=== PATIENT | female | born 1980 | race Caucasian/White ===

== ENCOUNTER 2017-02-07 19:21 | Emergency (ER) | payer OTHER ==
[~2017-02-07] VITALS: Ht 160 cm; Wt 74.4 kg
[~2017-02-07 19:21] MED LIST: ASPI-1094 PO; ATOR20TA PO; CLON2TAB4 PO; FERR-38 PO; HYDR-3326 PO; INSU100C SQ; METO-295 PO; METO50TA3 PO; NORT10CA PO; OXYCARBAZEPINE PO; PHEN100C4 PO
--- NOTE | 2017-02-07 19:32 | NUR ---
PT WALKED INTO ER C/O SOB/LEFT SIDED WEAKNESS AND TROUBLE SPEAKING SINCE 1819, PT IS ALERT, ORIENTED X 4, NO RESP DISTRESS NOTED OR REPORTED UPON ASSESSMENT...PT REPORTED INCREASING LEFT SIDED WEAKNESS SINCE 1619... MD AT BEDSIDE...
[2017-02-07] MEDS ORDERED: IV NORMAL SALINE 500 ML BAG IV ONE (19:45)
[2017-02-07 20:09] LABS: BASOPHILS % (AUTO) 0.4 % (0.0-2.0); EOSINOPHILS # (AUTO) 0.1 K/uL (0.0-0.7); EOSINOPHILS % (AUTO) 0.9 % (0.0-7.0); HEMATOCRIT 38.2 % (37.0-47.0); HEMOGLOBIN 12.6 g/dL (12.0-16.0); LYMPHOCYTES # (AUTO) 1.7 K/uL (0.8-4.8); MEAN CORPUSCULAR HEMOGLOBIN 30.3 uug (27.0-31.0); MEAN CORPUSCULAR HGB CONC 33 g/dL (32.0-37.0); MEAN CORPUSCULAR VOLUME 91.9 fL (81.0-99.0); MONOCYTES # (AUTO) 0.2 K/uL (0.1-1.30); MONOCYTES % (AUTO) 2.9 % (0.0-11.0); NEUTROPHILS # (AUTO) 4.8 K/uL (1.8-8.9); NEUTROPHILS % (AUTO) 70.8 % (38.5-71.5); PLATELET COUNT (AUTO) 375 K/uL (150-450); RED BLOOD CELL COUNT(AUTO) 4.15 MIL/uL (4.20-5.40); RED CELL DISTRIBUTION WIDTH 11.9 % (11.5-14.5); WHITE BLOOD COUNT (AUTO) 6.8 K/uL (4.0-11.2)
[2017-02-07 20:15] LABS: CALCIUM 9.1 mg/dL (8.5-10.1); CARBON DIOXIDE 28 mmol/L (21-32); CHLORIDE 104 mmol/L (98-107); GFR 62 mL/min (>60); GLUCOSE 138 mg/dL (74-106); POTASSIUM 4.8 mmol/L (3.5-5.1); SODIUM SERUM 141 mmol/L (136-145); UREA NITROGEN, BLOOD 19 mg/dL (7-18)
[2017-02-07] MEDS ORDERED: LABETALOL HCL 100 MG/20 ML VIAL IV ONE (20:15)
[2017-02-07] MEDS ORDERED: LABETALOL HCL 100 MG/20 ML VIAL ONE (20:15)
[2017-02-07 20:21] LABS: ALANINE AMINOTRANSFERASE 16 U/L (14-59); ALBUMIN 3.9 g/dL (3.4-5.0); ALKALINE PHOSPHATASE 151 U/L (50-136); ASPARTATE AMINOTRANSFERASE 17 U/L (15-37); BILIRUBIN,DIRECT < 0.1 mg/dL (0.0-0.2); BILIRUBIN,TOTAL 0.2 mg/dL (0.2-1.0); TOTAL PROTEIN, SERUM 8.6 g/dL (6.4-8.2)
[2017-02-07 20:23] LABS: TROPONIN I < 0.017 ng/mL (0.00-0.056)
[2017-02-07 20:29] LABS: LACTIC ACID 1.3 mmol/L (0.4-2.0)
[2017-02-07] MEDS ORDERED: IOHEXOL 350 100 ML INFUS..BTL ONE (21:01)
[2017-02-07] MEDS ORDERED: NORMAL SALINE FLUSH 10 ML DISP.SYRIN ONE (21:01)
[2017-02-07] MEDS ORDERED: IV NORMAL SALINE 250 ML IV ONE (21:01)
[2017-02-07 21:20] LABS: *BILIRUBIN,URIN NEGATIVE (NEGATIVE); *BLOOD, URINE 3+ (NEGATIVE); *CLARITY,URINE SLIGHTLY CLOUDY (CLEAR); *COLOR,URINE YELLOW (YELLOW); *KETONES,URINE NEGATIVE (NEGATIVE); *PROTEIN,URINE NEGATIVE (NEGATIVE); *UROBILINOGEN,URINE 0.2 E.U./dl (NORMAL); LEUKOCYTE ESTERASE ,URINE NEGATIVE (NEGATIVE); NITRITE, URINE NEGATIVE (NEGATIVE); UGLUCOSE NEGATIVE (NEGATIVE)
[2017-02-07 21:27] LABS: *AMPHETAMINE, URINE NEGATIVE (NEGATIVE); *BARBITURATE, URINE NEGATIVE (NEGATIVE); *CANNABINOID, URINE NEGATIVE (NEGATIVE); *COCCAINE, URINE NEGATIVE (NEGATIVE); *OPIATE, URINE NEGATIVE (NEGATIVE); *PHENCYCLIDINE SCREEN,URINE NEGATIVE (NEGATIVE)
[2017-02-07 21:28] LABS: BACTERIA,URINE FEW /HPF (NONE SEEN); RBC,URINE 80-100 /HPF (0-3); SQUAMOUS EPITHELIAL CELL,UR MODERATE /HPF (NONE SEEN); WBC,URINE 0-3 /HPF (0-3)
--- NOTE | 2017-02-07 22:17 | NUR ---
Patient discharged to home in stable conditon. Written and verbal after care instructions given. Patient verbalizes understanding of instructions. Per pt request used wheelchair to help pt out, pts friend waiting for pt outside...
[2017-02-07 22:32] VITALS: BP 148/97
== END 2017-02-07 22:34 | disposition home or self-care (01) ==
LOC: ER 19:21
DX: R47.1 Dysarthria and anarthria (principal); G45.9 Transient cerebral ischemic attack, unspecified; I10 Essential (primary) hypertension; J45.909 Unspecified asthma, uncomplicated; E78.00 Pure hypercholesterolemia, unspecified; G43.909 Migraine, unspecified, not intractable, without status migrainosus; E11.9 Type 2 diabetes mellitus without complications; Z79.82 Long term (current) use of aspirin; Z79.4 Long term (current) use of insulin; Z88.1 Allergy status to other antibiotic agents; Z88.8 Allergy status to other drugs, medicaments and biological substances
CPT/HCPCS: 36415; 70030-TC; 70450; 70496; 71010; 80307; 83605; 85025; 85730; 87040; 87077; 87086; 93005; A4663; J3490; J7040; J7050; Q9967

== ENCOUNTER 2017-02-16 17:30 | Inpatient (IN) | payer OTHER ==
[~2017-02-16] VITALS: Ht 160 cm; Wt 70.4 kg
--- NOTE | 2017-02-16 18:30 | NUR ---
PT TOOK OWN SUGAR AT HOME 123
[2017-02-16 19:23] LABS: BASOPHILS % (AUTO) 0.5 % (0.0-2.0); EOSINOPHILS # (AUTO) 0.1 K/uL (0.0-0.7); EOSINOPHILS % (AUTO) 1.4 % (0.0-7.0); HEMATOCRIT 37.2 % (37.0-47.0); LYMPHOCYTES # (AUTO) 1.4 K/uL (0.8-4.8); LYMPHOCYTES % (AUTO) 17.8 % (20.5-51.5); MEAN CORPUSCULAR HEMOGLOBIN 32.3 uug (27.0-31.0); MEAN CORPUSCULAR HGB CONC 36 g/dL (32.0-37.0); MONOCYTES # (AUTO) 0.1 K/uL (0.1-1.30); MONOCYTES % (AUTO) 1.5 % (0.0-11.0); NEUTROPHILS # (AUTO) 6.5 K/uL (1.8-8.9); NEUTROPHILS % (AUTO) 78.8 % (38.5-71.5); PLATELET COUNT (AUTO) 352 K/uL (150-450); RED BLOOD CELL COUNT(AUTO) 4.09 MIL/uL (4.20-5.40); RED CELL DISTRIBUTION WIDTH 11.8 % (11.5-14.5); WHITE BLOOD COUNT (AUTO) 8.1 K/uL (4.0-11.2)
[2017-02-16 19:27] LABS: CALCIUM 9.1 mg/dL (8.5-10.1); POTASSIUM 4.7 mmol/L (3.5-5.1)
[2017-02-16 19:33] LABS: ALBUMIN 3.7 g/dL (3.4-5.0); BILIRUBIN,DIRECT 0.1 mg/dL (0.0-0.2); BILIRUBIN,TOTAL 0.2 mg/dL (0.2-1.0); TOTAL PROTEIN, SERUM 8.1 g/dL (6.4-8.2)
[2017-02-16 19:34] LABS: TROPONIN I < 0.017 ng/mL (0.00-0.056)
--- NOTE | 2017-02-16 20:42 | NUR ---
Pt. admitted to [facility], under care of Dr. Feng Belongs List completed
[2017-02-16 21:00] VITALS: BP 113/84
[2017-02-16] MEDS ORDERED: COLL30OI TOP (21:21)
[2017-02-16] MEDS ORDERED: MUPI22OI2 TP (21:21)
[2017-02-16] MEDS ORDERED: ACETAMINOPHEN 325 MG TABLET PO PRN (21:45)
[2017-02-16] MEDS ORDERED: INSULIN REGULAR, HUMAN 300 UNITS/3 ML VIAL SQ PRN (21:45)
[2017-02-16] MEDS ORDERED: MORPHINE SULFATE 2 MG/1 ML DISP.SYRIN IV PRN (21:45)
[2017-02-16] MEDS ORDERED: ZOLPIDEM 5 MG TABLET PO PRN (21:45)
[2017-02-16] MEDS ORDERED: DEXTROSE 50% 50 ML DISP.SYRIN IV PRN (21:45)
[2017-02-16] MEDS ORDERED: INSULIN REGULAR, HUMAN 300 UNIT/3 ML VIAL SQ PRN (21:45)
[2017-02-16] MEDS ORDERED: ONDANSETRON 4 MG/2 ML VIAL IV PRN (21:45)
[2017-02-16] MEDS ORDERED: ACET-1467 PO (21:53)
[2017-02-16] MEDS ORDERED: INSU100V7 SQ (21:53)
[2017-02-16] MEDS ORDERED: ATOR40TA PO (21:53)
[2017-02-16] MEDS ORDERED: ZOLP10TA2 PO (21:53)
[2017-02-16] MEDS ORDERED: CLON1TAB4 PO (21:53)
[2017-02-16] MEDS ORDERED: INSU100C SQ (22:02)
[2017-02-16] MEDS ORDERED: LURA20TA PO (22:02)
--- NOTE | 2017-02-16 22:45 | NUR ---
PATIENT RECEIVED FROM ER VIA RNORMAN. ALERT, ORIENTED X 4, IN NO ACUTE DISTRESS, NO C/O OF CHEST PAIN, NO SOB. PLACED COMFORTABLY IN BED, BODY ASSESSMENT DONE, PT ABLE TO PROVIDE HISTORY. SAFETY MEASURES INITIATED. INSTRUCTED PT TO USE CALL LIGHT WHEN ASSISTANCE IS NEEDED. BED IN LOW POSITION, BED ALARM ON. WILL CONTINUE TO MONITOR.
[2017-02-16] MEDS ORDERED: HYDROCODONE/APAP 5-325MG TABLET PO PRN (23:45)
[2017-02-16] MEDS ORDERED: CLONAZEPAM 1 MG TABLET PO PRN (23:45)
[2017-02-16] MEDS ORDERED: MUPIROCIN 2% OINT 22 GM TUBE TP PRN (23:45)
[2017-02-16] MEDS ORDERED: PHENYTOIN SODIUM EXTENDED 100 MG CAPSULE.SA PO SCH (23:45)
[2017-02-16] MEDS ORDERED: METOPROLOL TARTRATE 50 MG TABLET PO SCH (23:45)
[2017-02-16] MEDS ORDERED: COLLAGENASE OINT 30 GM TUBE TOP PRN (23:45)
[2017-02-17] MEDS ORDERED: PHENYTOIN SODIUM EXTENDED 100 MG CAPSULE.SA PO ONE (00:33)
[2017-02-17] MEDS ORDERED: METOPROLOL TARTRATE 25 MG TABLET ONE (00:34)
[2017-02-17] MEDS ORDERED: HYDROCODONE/APAP 5-325MG TABLET ONE (00:41)
[2017-02-17] MEDS ORDERED: INSULIN DETEMIR 300 UNIT/3 ML CARTRIDGE SQ ONE (00:42)
[2017-02-17] MEDS: INSULIN DETEMIR 300 UNIT/3 ML CARTRIDGE SQ SCH ×2 (00:52→20:43)
--- NOTE | 2017-02-17 01:00 | NUR ---
KAREN FERREIRA ORDERED WITH DECREASED BP. ELEVATED LOWER EXTREMITIES. WILL MONITOR Addendum: 02/17/17 at 0610 by MANNY DELATORRE RN PATIENT ALERT, ALSO STATED THAT SHE USUALLY HAS LOW BP DURING THE NIGHT AND ELEVATES DURING THE DAY
[2017-02-17 05:38] VITALS: BP 82/52
--- NOTE | 2017-02-17 05:42 | NUR ---
PT'S BP AT 82/52, NO ACUTE DISTRESS, NO SOB, RESPONSIVE, ALERT, DENIES DIZZINESS OR CHEST PAIN. PT STATED "MY BP IS USUALLY LOW IN THE HOST/HOSTESS HEAD AND HIGH DURING THE DAY". DR. WALDRON MADE AWARE, NO NEW ORDERS AT THIS TIME. PER DR. WALDRON CONTINUE TO MONITOR.
[2017-02-17] MEDS: BLOOD SUGAR DIAGNOSTIC 1 EACH STRIP VI SCH ×4 (06:40→20:35)
[2017-02-17] MEDS ORDERED: PHENYTOIN SODIUM EXTENDED 100 MG CAPSULE.SA PO SCH (07:30)
--- NOTE | 2017-02-17 08:04 | NUR ---
DILANTIN TAKEN OUT OF PYXIS BY STEEL MOLDER.
[2017-02-17] MEDS ORDERED: ASPIRIN 81 MG TAB.CHEW PO SCH (09:00)
[2017-02-17] MEDS ORDERED: METOPROLOL TARTRATE 25 MG TABLET PO SCH (09:00)
[2017-02-17] MEDS ORDERED: OXYCARBAZEPINE PO SCH (09:00)
[2017-02-17] MEDS: ASPIRIN 325 MG TABLET PO SCH (09:20)
[2017-02-17] MEDS: PHENYTOIN SODIUM EXTENDED 100 MG CAPSULE.SA PO SCH ×3 (09:21→21:31)
[2017-02-17] MEDS: PANTOPRAZOLE SODIUM 40 MG TABLET.DR PO SCH (09:21)
[2017-02-17] MEDS: OXCARBAZEPINE 300 MG TABLET PO SCH ×2 (09:22→20:36)
[2017-02-17] MEDS: FERROUS SULFATE 325 MG TABEC PO SCH (09:22)
--- NOTE | 2017-02-17 09:25 | NUR ---
tommie taken out by night time babysitter nurses
[2017-02-17 11:09] LABS: ALBUMIN 3.9 g/dL (3.4-5.0); BILIRUBIN,TOTAL 0.2 mg/dL (0.2-1.0); CALCIUM 9.1 mg/dL (8.5-10.1); CREATININE 1.3 mg/dL (0.6-1.3); MAGNESIUM 2.2 mg/dL (1.8-2.4); PHOSPHOROUS 4.7 mg/dL (2.5-4.9); POTASSIUM 4.7 mmol/L (3.5-5.1); TOTAL PROTEIN, SERUM 8.5 g/dL (6.4-8.2)
[2017-02-17 11:11] LABS: BASOPHILS % (AUTO) 0.4 % (0.0-2.0); EOSINOPHILS # (AUTO) 0.1 K/uL (0.0-0.7); EOSINOPHILS % (AUTO) 0.8 % (0.0-7.0); HEMATOCRIT 36.7 % (37.0-47.0); LYMPHOCYTES # (AUTO) 1.8 K/uL (0.8-4.8); LYMPHOCYTES % (AUTO) 23.7 % (20.5-51.5); MEAN CORPUSCULAR HEMOGLOBIN 32.2 uug (27.0-31.0); MEAN CORPUSCULAR HGB CONC 35 g/dL (32.0-37.0); MEAN CORPUSCULAR VOLUME 91.3 fL (81.0-99.0); MONOCYTES # (AUTO) 0.1 K/uL (0.1-1.30); MONOCYTES % (AUTO) 1.7 % (0.0-11.0); NEUTROPHILS # (AUTO) 5.5 K/uL (1.8-8.9); NEUTROPHILS % (AUTO) 73.4 % (38.5-71.5); PLATELET COUNT (AUTO) 303 K/uL (150-450); RED BLOOD CELL COUNT(AUTO) 4.02 MIL/uL (4.20-5.40); RED CELL DISTRIBUTION WIDTH 11.8 % (11.5-14.5); WHITE BLOOD COUNT (AUTO) 7.5 K/uL (4.0-11.2)
[2017-02-17 12:05] VITALS: BP 105/72
[2017-02-17] MEDS: ACETAMINOPHEN/CODEINE 300-30 MG TABLET PO PRN ×2 (12:26→19:35)
--- NOTE | 2017-02-17 12:51 | NUR ---
OK FOR MRI, SPOKE TO NURSE MIGUEL TO SENT THE PATIENT AT 5.30PM FOR 6.00 PM TABLETIME, MRI CHECKLIST ,CONSENT DONE AND TO MAKE SURE PATIENT IS NOT CLAUSTRO.,IF IT IS THEN CALL THE TO SEDATE THE PATIENT.
[2017-02-17] MEDS: IV NS 1000 ML 1,000 ML IV PRN ×2 (15:03→15:09)
[2017-02-17 16:14] VITALS: BP 107/72
[2017-02-17] MEDS ORDERED: GADOVERSETAMIDE 2.5 MMOL/5 ML VIAL MC ONE (16:34)
[2017-02-17] MEDS ORDERED: LORAZEPAM 2 MG/1 ML VIAL IV ONE (16:45)
[2017-02-17 17:33] VITALS: BP 128/88
[2017-02-17 18:30] LABS: *BILIRUBIN,URIN NEGATIVE (NEGATIVE); *BLOOD, URINE Trace-intact (NEGATIVE); *CLARITY,URINE CLEAR (CLEAR); *COLOR,URINE YELLOW (YELLOW); *KETONES,URINE NEGATIVE (NEGATIVE); *PROTEIN,URINE NEGATIVE (NEGATIVE); *UROBILINOGEN,URINE 0.2 E.U./dl (NORMAL); LEUKOCYTE ESTERASE ,URINE NEGATIVE (NEGATIVE); NITRITE, URINE NEGATIVE (NEGATIVE); PH,URINE 5.5 (5.0-8.0); UGLUCOSE NEGATIVE (NEGATIVE)
[2017-02-17 18:43] LABS: *AMPHETAMINE, URINE NEGATIVE (NEGATIVE); *BARBITURATE, URINE POSITIVE (NEGATIVE); *CANNABINOID, URINE NEGATIVE (NEGATIVE); *COCCAINE, URINE NEGATIVE (NEGATIVE); *OPIATE, URINE POSITIVE (NEGATIVE); *PHENCYCLIDINE SCREEN,URINE NEGATIVE (NEGATIVE)
[2017-02-17 18:49] LABS: BACTERIA,URINE FEW /HPF (NONE SEEN); RBC,URINE 0-3 /HPF (0-3); SQUAMOUS EPITHELIAL CELL,UR MODERATE /HPF (NONE SEEN); WBC,URINE 0-3 /HPF (0-3)
--- NOTE | 2017-02-17 19:30 | NUR ---
RECEIVED PT RESTING IN BED, IN NO ACUTE DISTRESS. IVF INFUSING, IV SITE ON R WRIST PATENT, NO SIGNS OF INFILTRATION NOTED. CALL LIGHT WITHIN REACH, WILL CONTINUE TO MONITOR.
[2017-02-17 20:20] VITALS: BP 113/66
[2017-02-17] MEDS ORDERED: DOCUSATE SODIUM 250 MG CAPSULE PO SCH (21:00)
[2017-02-17] MEDS ORDERED: NORTRIPTYLINE HCL 10 MG CAPSULE PO SCH (21:00)
[2017-02-17] MEDS ORDERED: DOCUSATE SODIUM 100 MG CAPSULE PO SCH (21:00)
[2017-02-17] MEDS ORDERED: ATORVASTATIN 20 MG TABLET PO SCH (21:00)
[2017-02-18] MEDS: ACETAMINOPHEN/CODEINE 300-30 MG TABLET PO PRN ×3 (02:21→13:42)
[2017-02-18] MEDS: PHENYTOIN SODIUM EXTENDED 100 MG CAPSULE.SA PO SCH ×2 (05:10→13:39)
[2017-02-18] MEDS: IV NS 1000 ML 1,000 ML IV PRN (05:16)
[2017-02-18 05:30] VITALS: BP 96/56
--- NOTE | 2017-02-18 06:10 | NUR ---
PT SLEPT WELL, NO ACUTE DISTRESS. ON PAIN MANAGEMENT FOR C/O OF HEADACHE/MIGRANIE CONTROLLED WITH TYLENOL #3. IVF STILL INFUSING. SAFETY MAINTAINED, ASSISTED WITH TOILETING NEEDS, COMMODE AT BEDSIDE. WILL CONTINUE TO MONITOR.
[2017-02-18] MEDS: PANTOPRAZOLE SODIUM 40 MG TABLET.DR PO SCH (06:28)
[2017-02-18] MEDS: BLOOD SUGAR DIAGNOSTIC 1 EACH STRIP VI SCH ×2 (06:29→11:58)
[2017-02-18 07:38] LABS: ALBUMIN 3.5 g/dL (3.4-5.0); BILIRUBIN,TOTAL 0.2 mg/dL (0.2-1.0); CALCIUM 8.6 mg/dL (8.5-10.1); CREATININE 0.8 mg/dL (0.6-1.3); PHOSPHOROUS 4.1 mg/dL (2.5-4.9); POTASSIUM 4.8 mmol/L (3.5-5.1); TOTAL PROTEIN, SERUM 7.9 g/dL (6.4-8.2)
--- NOTE | 2017-02-18 08:00 | NUR ---
AWAKE, ALERT AND ORIENTED X 4. BUSTILLO X4 WITH SLIGHTLY DECREASED STRENGTH ON LEFT SIDE. ABLE TO HOLD MEDS AND WATER IN LEFT HAND AND TAKE HER MEDS BY HERSELF. SPEAKS IN A CLEAR VOICE WITHOUT SIGNS OF DYSARTHRIA. NO OVERT SIGNS OF STROKE NOTED. TAKING BREAKFAST INDEPENDENTLY.
[2017-02-18] MEDS: ASPIRIN 325 MG TABLET PO SCH (08:31)
[2017-02-18] MEDS: FERROUS SULFATE 325 MG TABEC PO SCH (08:31)
[2017-02-18] MEDS: OXCARBAZEPINE 300 MG TABLET PO SCH (08:32)
[2017-02-18 08:47] LABS: THYROID STIMULATING HORMONE 5.251 mIU/mL (0.358-3.740)
[2017-02-18 09:34] LABS: BASOPHILS % (AUTO) 0.4 % (0.0-2.0); EOSINOPHILS # (AUTO) 0.1 K/uL (0.0-0.7); EOSINOPHILS % (AUTO) 0.9 % (0.0-7.0); HEMATOCRIT 37.9 % (37.0-47.0); HEMOGLOBIN 13.1 g/dL (12.0-16.0); LYMPHOCYTES # (AUTO) 1.7 K/uL (0.8-4.8); LYMPHOCYTES % (AUTO) 27.2 % (20.5-51.5); MEAN CORPUSCULAR HEMOGLOBIN 31.9 uug (27.0-31.0); MEAN CORPUSCULAR HGB CONC 35 g/dL (32.0-37.0); MEAN CORPUSCULAR VOLUME 92.3 fL (81.0-99.0); MONOCYTES # (AUTO) 0.3 K/uL (0.1-1.30); MONOCYTES % (AUTO) 4.5 % (0.0-11.0); NEUTROPHILS # (AUTO) 4.3 K/uL (1.8-8.9); PLATELET COUNT (AUTO) 314 K/uL (150-450); RED BLOOD CELL COUNT(AUTO) 4.11 MIL/uL (4.20-5.40); RED CELL DISTRIBUTION WIDTH 11.9 % (11.5-14.5); WHITE BLOOD COUNT (AUTO) 6.4 K/uL (4.0-11.2)
[2017-02-18 11:09] VITALS: BP 112/74
[2017-02-18 15:06] VITALS: BP 100/70
--- NOTE | 2017-02-18 16:30 | NUR ---
discharge instructions given to patient. Verbalized understanding. Pt is in no acute distress. Pt refused to have pharmacist education about her medication. Pt refused to have picture taken of her wounds. "im in a hurry my dad will be downstairs soon". IV d/c. on right hand.
--- NOTE | 2017-02-18 16:33 | NUR ---
Discharge: The patient will be discharged today back home [[address] [place] [address]] [address] Feng. She is aware and in agreement with her discharge. She will discharged via private car.
== END 2017-02-18 16:35 | disposition home or self-care (01) | DRG 756 ==
LOC: ER 17:32 → MED 20:28
PROVIDERS: ADMIT Internal Medicine; ATTEND Internal Medicine
DX: F44.9 Dissociative and conversion disorder, unspecified (principal); N17.0 Acute kidney failure with tubular necrosis; I69.854 Hemiplegia and hemiparesis following other cerebrovascular disease affecting left non-dominant side; E78.5 Hyperlipidemia, unspecified; G40.909 Epilepsy, unspecified, not intractable, without status epilepticus; G43.909 Migraine, unspecified, not intractable, without status migrainosus; J45.909 Unspecified asthma, uncomplicated; Z91.81 History of falling; Z86.718 Personal history of other venous thrombosis and embolism; Z83.3 Family history of diabetes mellitus; Z79.4 Long term (current) use of insulin; M25.552 Pain in left hip; E10.65 Type 1 diabetes mellitus with hyperglycemia; F41.9 Anxiety disorder, unspecified; F31.9 Bipolar disorder, unspecified; I73.9 Peripheral vascular disease, unspecified; I10 Essential (primary) hypertension; I25.2 Old myocardial infarction; E10.40 Type 1 diabetes mellitus with diabetic neuropathy, unspecified
CPT/HCPCS: 36415; 70030-TC; 70450; 70553; 71010; 73502; 80307; 83605; 83735; 84100; 84443; 84703; 85025; 85730; 86850; 86900; 86901; 87040; 87086; 93005; 97001; A4663; A9579; J1815; J2060; J7030

== ENCOUNTER 2017-02-20 19:59 | Emergency (ER) | payer OTHER ==
[~2017-02-20] VITALS: Ht 175.3 cm; Wt 71.2 kg
[~2017-02-20 19:59] MED LIST changes: +ACET-1467 PO; +ATOR40TA PO; +CLON1TAB4 PO; -CLON2TAB4 PO; +COLL30OI TOP; +INSU100V7 SQ; +LURA20TA PO; -METO-295 PO; +MUPI22OI2 TP; +ZOLP10TA2 PO
--- NOTE | 2017-02-20 20:09 | NUR ---
Patient BIB [facility] c/o n/v. Patient appears well and is laughing and joking on gurney, patient states that she was just discharged from this hospital and that she has been vomiting since. To room 4A.
--- NOTE | 2017-02-20 20:20 | NUR ---
KEYSHA speaking with Dr. Mayes, Luis
[2017-02-20] MEDS ORDERED: ONDANSETRON 4 MG/2 ML VIAL IV ONE (20:45)
[2017-02-20] MEDS ORDERED: IV NORMAL SALINE 1000 ML BAG IV ONE (20:45)
[2017-02-20 21:09] LABS: BASOPHILS # (AUTO) 0.1 K/uL (0.0-0.2); BASOPHILS % (AUTO) 0.6 % (0.0-2.0); EOSINOPHILS % (AUTO) 0.1 % (0.0-7.0); HEMATOCRIT 37.8 % (37.0-47.0); LYMPHOCYTES # (AUTO) 0.8 K/uL (0.8-4.8); LYMPHOCYTES % (AUTO) 7.4 % (20.5-51.5); MEAN CORPUSCULAR HEMOGLOBIN 31.3 uug (27.0-31.0); MEAN CORPUSCULAR HGB CONC 34 g/dL (32.0-37.0); MEAN CORPUSCULAR VOLUME 91.2 fL (81.0-99.0); MONOCYTES # (AUTO) 0.1 K/uL (0.1-1.30); MONOCYTES % (AUTO) 0.7 % (0.0-11.0); NEUTROPHILS # (AUTO) 9.2 K/uL (1.8-8.9); NEUTROPHILS % (AUTO) 91.2 % (38.5-71.5); PLATELET COUNT (AUTO) 231 K/uL (150-450); RED BLOOD CELL COUNT(AUTO) 4.15 MIL/uL (4.20-5.40); RED CELL DISTRIBUTION WIDTH 11.7 % (11.5-14.5); WHITE BLOOD COUNT (AUTO) 10.2 K/uL (4.0-11.2)
[2017-02-20 21:12] LABS: CREATININE 0.8 mg/dL (0.6-1.3); POTASSIUM 4.2 mmol/L (3.5-5.1)
[2017-02-20] MEDS ORDERED: ONDANSETRON ODT 4 MG TAB.RAPDIS SL ONE (21:15)
[2017-02-20 21:18] LABS: ALBUMIN 3.9 g/dL (3.4-5.0); BILIRUBIN,DIRECT 0.1 mg/dL (0.0-0.2); BILIRUBIN,TOTAL 0.3 mg/dL (0.2-1.0); TOTAL PROTEIN, SERUM 8.4 g/dL (6.4-8.2)
[2017-02-20] MEDS ORDERED: ONDANSETRON ODT 4 MG TAB.RAPDIS ONE (21:21)
--- NOTE | 2017-02-20 22:01 | NUR ---
Patient discharged to home in stable conditon. Written and verbal after care instructions given. Patient verbalizes understanding of instructions.
== END 2017-02-20 22:02 | disposition home or self-care (01) ==
LOC: ER 20:02
DX: R11.10 Vomiting, unspecified (principal); I10 Essential (primary) hypertension; E78.00 Pure hypercholesterolemia, unspecified; J45.909 Unspecified asthma, uncomplicated; F31.9 Bipolar disorder, unspecified; E11.9 Type 2 diabetes mellitus without complications; G43.909 Migraine, unspecified, not intractable, without status migrainosus; Z79.4 Long term (current) use of insulin; Z88.1 Allergy status to other antibiotic agents; Z91.030 Bee allergy status; Z91.018 Allergy to other foods
CPT/HCPCS: 36415; 80048; 80076; 83690; 84484; 85025; 93005; 99285; A4663; Q0162; 70030-TC

== ENCOUNTER 2018-02-19 18:10 | Inpatient (IN) | payer OTHER ==
[~2018-02-19] VITALS: Ht 160 cm; Wt 69.4 kg
[~2018-02-19 18:10] MED LIST changes: +METO50TA16 PO; -METO50TA3 PO
[2018-02-19] MEDS ORDERED: DIVA500T2 PO (18:27)
--- NOTE | 2018-02-19 18:51 | NUR ---
DR CAIN AT THE BEDSIDE FOR EVAL AND EXAM.
--- NOTE | 2018-02-19 19:08 | NUR ---
SHIFT REPORT GIVEN TO GENESIS BOLANOS, I RELINQUISH CARE AT THIS TIME.
[2018-02-19 19:34] LABS: BASOPHILS % (AUTO) 0.5 % (0.0-2.0); EOSINOPHILS # (AUTO) 0.2 K/uL (0.0-0.7); EOSINOPHILS % (AUTO) 2.8 % (0.0-7.0); HEMATOCRIT 29.9 % (31.2-41.9); HEMOGLOBIN 10.3 g/dL (10.9-14.3); LYMPHOCYTES # (AUTO) 1.2 K/uL (20.0-40.0); LYMPHOCYTES % (AUTO) 22.1 % (20.5-51.5); MEAN CORPUSCULAR HEMOGLOBIN 31.6 uug (24.7-32.8); MEAN CORPUSCULAR HGB CONC 35 g/dL (32.3-35.6); MEAN CORPUSCULAR VOLUME 91.4 fL (75.5-95.3); MONOCYTES # (AUTO) 0.3 K/uL (2.0-10.0); NEUTROPHILS # (AUTO) 3.8 K/uL (1.8-8.9); NEUTROPHILS % (AUTO) 69.6 % (38.5-71.5); PLATELET COUNT (AUTO) 353 K/uL (179-408); RED BLOOD CELL COUNT(AUTO) 3.27 MIL/uL (3.63-4.92); WHITE BLOOD COUNT (AUTO) 5.5 K/uL (3.8-11.8)
[2018-02-19 19:36] LABS: *BILIRUBIN,URIN NEGATIVE (NEGATIVE); *BLOOD, URINE Trace-intact (NEGATIVE); *CLARITY,URINE CLOUDY (CLEAR); *COLOR,URINE YELLOW (YELLOW); *KETONES,URINE 1+ (NEGATIVE); *PROTEIN,URINE NEGATIVE (NEGATIVE); *UROBILINOGEN,URINE 0.2 E.U./dl (NORMAL); LEUKOCYTE ESTERASE ,URINE 2+ (NEGATIVE); NITRITE, URINE NEGATIVE (NEGATIVE); UGLUCOSE 2+ (NEGATIVE)
[2018-02-19 19:37] LABS: *URINE HCG, QUAL NEGATIVE (NEGATIVE)
[2018-02-19 19:39] LABS: BACTERIA,URINE FEW /HPF (NONE SEEN); SQUAMOUS EPITHELIAL CELL,UR FEW /HPF (NONE SEEN); WBC,URINE 50-80 /HPF (0-3); YEAST,URINE FEW /HPF (NONE SEEN)
--- NOTE | 2018-02-19 19:45 | NUR ---
Patient out of ER for CT.
[2018-02-19 19:50] LABS: CREATININE 1.1 mg/dL (0.6-1.3); POTASSIUM 4.9 mmol/L (3.5-5.1)
[2018-02-19 19:54] LABS: BILIRUBIN,DIRECT 0.1 mg/dL (0.0-0.2); BILIRUBIN,TOTAL 0.2 mg/dL (0.2-1.0); TOTAL PROTEIN, SERUM 7.3 g/dL (6.4-8.2)
--- NOTE | 2018-02-19 19:58 | NUR ---
Patient back to ER from CT
[2018-02-19] MEDS ORDERED: CEFTRIAXONE 1 G in IV DEXTROSE 5% 50 ML IV ONE (20:00)
[2018-02-19] MEDS ORDERED: IV NORMAL SALINE 1000 ML BAG IV ONE (20:00)
[2018-02-19] MEDS ORDERED: GENTAMICIN SULFATE INJ 80 MG in IV DEXTROSE 5% 100 ML IV ONE (20:00)
[2018-02-19] MEDS ORDERED: CEFTRIAXONE 1 G VIAL ONE (20:08)
[2018-02-19] MEDS ORDERED: ONDANSETRON 4 MG/2 ML VIAL ONE (20:09)
[2018-02-19] MEDS ORDERED: GENTAMICIN SULFATE 80 MG/2 ML VIAL ONE (20:09)
[2018-02-19] MEDS ORDERED: MORPHINE SULFATE 4 MG/1 ML DISP.SYRIN ONE ×2 (20:09→21:46)
[2018-02-19] MEDS ORDERED: MORPHINE SULFATE 4 MG/1 ML DISP.SYRIN IV ONE ×2 (20:15→21:45)
[2018-02-19] MEDS ORDERED: ONDANSETRON IV *ER 4 MG/2 ML VIAL IV ONE (20:15)
--- NOTE | 2018-02-19 20:15 | NUR ---
Patient reports has headache and chestpain 10/10 also feels nauseous, requests something for the pain and nausea. MD notified.
--- NOTE | 2018-02-19 20:51 | NUR ---
Patient reports pain still 10/10, getting worse on head and chest, MD notified.
--- NOTE | 2018-02-19 21:40 | NUR ---
Patient reports pain is 10/10 on the top of head, nausea has improved slightly. MD notified.
--- NOTE | 2018-02-19 21:42 | NUR ---
Report given to Satish BOLANOS on Med Surg
--- NOTE | 2018-02-19 22:22 | NUR ---
Assisted patient to bathroom.
--- NOTE | 2018-02-19 22:27 | NUR ---
Assisted patient back to bed from bathroom. Patient reports she is feeling weak, hasn't eaten anything since last Friday.
--- NOTE | 2018-02-19 23:10 | NUR ---
Received pt alert and oriented x 4. Noted to be anxious with BP elevated. Relaxation measures and unit orientation provided. Pertinent assessments done. No s/s of acute distress noted at this time. Will call for orders. Bed in low, locked position. Side rails up x 2. Call light within reach. Closely monitored.
[2018-02-19] MEDS ORDERED: IV NS 1000 ML 1,000 ML IV PRN (23:43)
[2018-02-19] MEDS ORDERED: ONDANSETRON 4 MG/2 ML VIAL IV PRN (23:45)
[2018-02-19] MEDS ORDERED: Z GUARD REMEDY PASTE 57 GM TUBE TOP PRN (23:45)
[2018-02-19] MEDS ORDERED: ACETAMINOPHEN 325 MG TABLET PO PRN (23:45)
[2018-02-20] VITALS (7 sets, daily range): BP systolic 84–160; BP diastolic 43–99
[2018-02-20] MEDS ORDERED: DEXTROSE 50% 50 ML DISP.SYRIN IV PRN (00:15)
[2018-02-20] MEDS ORDERED: INSULIN REGULAR, HUMAN 300 UNITS/3 ML VIAL SQ PRN (00:15)
[2018-02-20] MEDS: LORAZEPAM 2 MG/1 ML VIAL IV PRN ×2 (00:35→13:27)
[2018-02-20] MEDS: MORPHINE SULFATE 2 MG/1 ML DISP.SYRIN IV PRN ×2 (00:50→02:13)
--- NOTE | 2018-02-20 05:14 | NUR ---
Pt noted to have slept intermittently throughout the night. Pain management provided. No distress noted at this time.
[2018-02-20] MEDS: BLOOD SUGAR DIAGNOSTIC 1 EACH STRIP VI SCH ×2 (06:28→11:47)
[2018-02-20] MEDS ORDERED: INSULIN LISPRO 1000 UNITS/10 ML VIAL(HUMALOG) SQ SCH ×3 (07:30→16:30)
[2018-02-20] MEDS ORDERED: MORPHINE SULFATE 4 MG/1 ML DISP.SYRIN IV PRN (08:00)
--- NOTE | 2018-02-20 08:00 | NUR ---
AWAKE ALERT AND ORIENTED X3, NO SS OF DISTRESS BUT GENERALIZED CHRONIC PAIN. REQUESTED FOR ATIVAN FOR RESTLESSNESS, CLOSELY MONITORED
[2018-02-20] MEDS: INSULIN REGULAR, HUMAN 300 UNIT/3 ML VIAL SQ PRN ×2 (08:01→11:50)
[2018-02-20 08:27] LABS: BASOPHILS % (AUTO) 0.5 % (0.0-2.0); EOSINOPHILS # (AUTO) 0.2 K/uL (0.0-0.7); EOSINOPHILS % (AUTO) 3.2 % (0.0-7.0); HEMATOCRIT 28.9 % (31.2-41.9); HEMOGLOBIN 9.9 g/dL (10.9-14.3); LYMPHOCYTES # (AUTO) 1.7 K/uL (20.0-40.0); LYMPHOCYTES % (AUTO) 27.6 % (20.5-51.5); MEAN CORPUSCULAR HEMOGLOBIN 31.4 uug (24.7-32.8); MEAN CORPUSCULAR HGB CONC 34 g/dL (32.3-35.6); MEAN CORPUSCULAR VOLUME 91.7 fL (75.5-95.3); MONOCYTES # (AUTO) 0.4 K/uL (2.0-10.0); MONOCYTES % (AUTO) 6.3 % (0.0-11.0); NEUTROPHILS # (AUTO) 3.8 K/uL (1.8-8.9); NEUTROPHILS % (AUTO) 62.4 % (38.5-71.5); PLATELET COUNT (AUTO) 346 K/uL (179-408); RED BLOOD CELL COUNT(AUTO) 3.15 MIL/uL (3.63-4.92)
[2018-02-20 08:49] LABS: BILIRUBIN,TOTAL 0.1 mg/dL (0.2-1.0); CREATININE 0.9 mg/dL (0.6-1.3); MAGNESIUM 1.9 mg/dL (1.8-2.4); POTASSIUM 4.2 mmol/L (3.5-5.1); TOTAL PROTEIN, SERUM 6.4 g/dL (6.4-8.2)
[2018-02-20 09:12] LABS: THYROID STIMULATING HORMONE 7.401 mIU/mL (0.358-3.740)
--- NOTE | 2018-02-20 10:04 | NUR ---
TEXTED DR. MCNAMARA FOR MRI APPROVAL.
--- NOTE | 2018-02-20 10:09 | NUR ---
MRI APPROVED. TABLETIME 1300HRS.,
[2018-02-20] MEDS ORDERED: ZOLPIDEM 5 MG TABLET PO PRN (12:00)
[2018-02-20] MEDS ORDERED: CLONAZEPAM 1 MG TABLET PO PRN ×2 (12:00→12:19)
--- NOTE | 2018-02-20 12:00 | NUR ---
SEEN BY DR PEREZ WITH DC ORDER CHIEF POWER DISPATCHER AND FAMILY MADE AWARE
--- NOTE | 2018-02-20 12:26 | NUR ---
WOUND CARE CONSULT: PT REFUSED FULL SKIN ASSESSMENT. PT NOTED TO HAVE SCARRING TO LEFT ANKLE AND RT LATERAL FOOT WELL LEFT MEDIAL FOOT CALLUS, PRESENT ON ADMISSION. PT INDEPENDENT WITH BED MOBILITY. WILL SEE PRN. CURRENT VANNESA SCORE IS 18.
[2018-02-20] MEDS ORDERED: CEPH-570 PO (16:14)
[2018-02-20] MEDS ORDERED: DIVALPROEX 500 MG TABLET.DR PO SCH (17:00)
[2018-02-20] MEDS ORDERED: METOPROLOL TARTRATE 50 MG TABLET PO SCH (17:00)
--- NOTE | 2018-02-20 17:08 | NUR ---
DISCHARGED HOME ACCOMPANIED BY FAMILY STABLE WITH RX AND FOLLOW-UP INSTRUCTION GIVEN
[2018-02-20] MEDS ORDERED: CEFTRIAXONE 1 G in IV DEXTROSE 5% 50 ML IV SCH (20:00)
[2018-02-20] MEDS ORDERED: INSULIN GLARGINE,HUM 300 UNITS/3 ML CARTRIDGE SQ SCH (21:00)
[2018-02-20] MEDS ORDERED: METOPROLOL TARTRATE 25 MG TABLET PO SCH (21:00)
[2018-02-21] MEDS ORDERED: FERROUS SULFATE 325 MG TABEC PO SCH (09:00)
[2018-02-21] MEDS ORDERED: ASPIRIN 81 MG TAB.CHEW PO SCH (09:00)
== END 2018-02-20 17:15 | disposition home or self-care (01) | DRG 463 ==
LOC: ER 18:10 → MED 23:03
PROVIDERS: ADMIT Nurse Practitioner Acute Care; ATTEND Nurse Practitioner Acute Care
DX: N39.0 Urinary tract infection, site not specified (principal); E10.65 Type 1 diabetes mellitus with hyperglycemia; I10 Essential (primary) hypertension; B34.9 Viral infection, unspecified; R27.0 Ataxia, unspecified; I69.354 Hemiplegia and hemiparesis following cerebral infarction affecting left non-dominant side; G40.909 Epilepsy, unspecified, not intractable, without status epilepticus; G43.909 Migraine, unspecified, not intractable, without status migrainosus; Z79.4 Long term (current) use of insulin; E03.9 Hypothyroidism, unspecified; E78.5 Hyperlipidemia, unspecified; F31.9 Bipolar disorder, unspecified; J45.909 Unspecified asthma, uncomplicated; E78.00 Pure hypercholesterolemia, unspecified; D63.8 Anemia in other chronic diseases classified elsewhere; Z87.440 Personal history of urinary (tract) infections
CPT/HCPCS: 36415; 70030-TC; 70450; 70551; 71045; 83605; 83735; 84100; 84443; 84703; 85025; 85730; 87040; 87086; 93005; 93307; A4663; C1751; J0696; J1580; J1815; J2060; J2270; J2405; J3490; J7030; J7050; J7060

== ENCOUNTER 2018-02-26 12:58 | Emergency (ER) | payer OTHER ==
[~2018-02-26] VITALS: Ht 160 cm; Wt 70.3 kg
[~2018-02-26 12:58] MED LIST changes: -ATOR20TA PO; -ATOR40TA PO; +CEPH-570 PO; -COLL30OI TOP; +DIVA500T2 PO; -HYDR-3326 PO; -MUPI22OI2 TP; -NORT10CA PO; -OXYCARBAZEPINE PO; -PHEN100C4 PO
[2018-02-26] MEDS ORDERED: LORAZEPAM 2 MG/1 ML VIAL IM ONE ×2 (13:15→14:45)
[2018-02-26] MEDS ORDERED: LORAZEPAM 2 MG/1 ML VIAL ONE ×2 (13:15→14:54)
--- NOTE | 2018-02-26 13:17 | NUR ---
PT IS IN ROOM #2B. DR CAIN EVALUATED THE PT.
[2018-02-26] MEDS ORDERED: CLINDAMYCIN HCL 150 MG CAPSULE PO ONE (14:15)
[2018-02-26] MEDS ORDERED: CLINDAMYCIN HCL 300 MG CAPSULE ONE (14:20)
--- NOTE | 2018-02-26 14:57 | NUR ---
PT WAS D/C TO HOME AFTER DR CAIN EVALUATION. D/C INSTRUCTIONS GIVEN TO THE PT. GAIT IS STABLE. PT DENIES PAIN. NO N/V. NO SOB.
[2018-02-26 15:02] VITALS: BP 141/82
== END 2018-02-26 15:03 | disposition home or self-care (01) ==
LOC: ER 12:59
DX: F41.9 Anxiety disorder, unspecified (principal); E11.621 Type 2 diabetes mellitus with foot ulcer; L97.529 Non-pressure chronic ulcer of other part of left foot with unspecified severity; I10 Essential (primary) hypertension; E78.00 Pure hypercholesterolemia, unspecified; J45.909 Unspecified asthma, uncomplicated; F31.9 Bipolar disorder, unspecified; Z86.73 Personal history of transient ischemic attack (TIA), and cerebral infarction without residual deficits; Z88.2 Allergy status to sulfonamides; Z88.8 Allergy status to other drugs, medicaments and biological substances; Z91.018 Allergy to other foods; Z79.2 Long term (current) use of antibiotics; Z79.84 Long term (current) use of oral hypoglycemic drugs; Z79.899 Other long term (current) drug therapy; Z79.82 Long term (current) use of aspirin; Z79.891 Long term (current) use of opiate analgesic; Z79.4 Long term (current) use of insulin
CPT/HCPCS: 73660; 93005; A4663; J2060

== ENCOUNTER 2018-03-02 12:55 | Emergency (ER) | payer OTHER ==
[~2018-03-02] VITALS: Ht 160 cm; Wt 70.3 kg
--- NOTE | 2018-03-02 15:36 | NUR ---
pt awaiting for dori ochoa md notified prior .
[2018-03-02] MEDS ORDERED: LORAZEPAM 1 MG TABLET ONE (15:58)
[2018-03-02] MEDS ORDERED: LORAZEPAM 0.5 MG TABLET PO ONE (16:00)
[2018-03-02 16:25] LABS: BASOPHILS # (AUTO) 0.1 K/uL (0.0-8.0); BASOPHILS % (AUTO) 1.1 % (0.0-2.0); EOSINOPHILS # (AUTO) 0.1 K/uL (0.0-0.7); EOSINOPHILS % (AUTO) 1.1 % (0.0-7.0); HEMATOCRIT 35.8 % (31.2-41.9); HEMOGLOBIN 12.3 g/dL (10.9-14.3); LYMPHOCYTES # (AUTO) 2.2 K/uL (20.0-40.0); LYMPHOCYTES % (AUTO) 30.5 % (20.5-51.5); MEAN CORPUSCULAR HEMOGLOBIN 31.1 uug (24.7-32.8); MEAN CORPUSCULAR HGB CONC 34 g/dL (32.3-35.6); MEAN CORPUSCULAR VOLUME 91.1 fL (75.5-95.3); MONOCYTES # (AUTO) 0.3 K/uL (2.0-10.0); NEUTROPHILS # (AUTO) 4.6 K/uL (1.8-8.9); NEUTROPHILS % (AUTO) 63.3 % (38.5-71.5); PLATELET COUNT (AUTO) 290 K/uL (179-408); RED BLOOD CELL COUNT(AUTO) 3.93 MIL/uL (3.63-4.92); WHITE BLOOD COUNT (AUTO) 7.3 K/uL (3.8-11.8)
[2018-03-02 16:45] LABS: CARBON DIOXIDE 20 mmol/L (21-32); CHLORIDE 101 mmol/L (98-107); CREATININE 0.9 mg/dL (0.6-1.3); GLUCOSE 226 mg/dL (74-106); POTASSIUM 4.7 mmol/L (3.5-5.1); UREA NITROGEN, BLOOD 20 mg/dL (7-18)
[2018-03-02 16:47] LABS: ETHANOL < 3 MG/DL (0-0)
[2018-03-02 16:51] LABS: ALANINE AMINOTRANSFERASE 20 U/L (14-59); ALKALINE PHOSPHATASE 96 U/L (50-136); ASPARTATE AMINOTRANSFERASE 10 U/L (15-37); BILIRUBIN,DIRECT 0.1 mg/dL (0.0-0.2); BILIRUBIN,TOTAL 0.4 mg/dL (0.2-1.0); TOTAL PROTEIN, SERUM 8.6 g/dL (6.4-8.2)
[2018-03-02 16:54] LABS: ACETAMINOPHEN < 2.0 ug/mL (10-30)
[2018-03-02 16:55] LABS: *BILIRUBIN,URIN NEGATIVE (NEGATIVE); *BLOOD, URINE NEGATIVE (NEGATIVE); *CLARITY,URINE CLOUDY (CLEAR); *COLOR,URINE YELLOW (YELLOW); *KETONES,URINE NEGATIVE (NEGATIVE); *PROTEIN,URINE NEGATIVE (NEGATIVE); *UROBILINOGEN,URINE 0.2 E.U./dl (NORMAL); LEUKOCYTE ESTERASE ,URINE 2+ (NEGATIVE); NITRITE, URINE NEGATIVE (NEGATIVE); UGLUCOSE 2+ (NEGATIVE)
[2018-03-02 16:58] LABS: *URINE HCG, QUAL NEGATIVE (NEGATIVE)
[2018-03-02 17:01] LABS: RBC,URINE 0-3 /HPF (0-3)
[2018-03-02 17:03] LABS: BACTERIA,URINE FEW /HPF (NONE SEEN); SQUAMOUS EPITHELIAL CELL,UR FEW /HPF (NONE SEEN); YEAST,URINE MANY /HPF (NONE SEEN)
[2018-03-02 17:06] LABS: *AMPHETAMINE, URINE NEGATIVE (NEGATIVE); *BARBITURATE, URINE POSITIVE (NEGATIVE); *CANNABINOID, URINE NEGATIVE (NEGATIVE); *COCCAINE, URINE NEGATIVE (NEGATIVE); *OPIATE, URINE NEGATIVE (NEGATIVE); *PHENCYCLIDINE SCREEN,URINE NEGATIVE (NEGATIVE)
--- NOTE | 2018-03-02 17:06 | NUR ---
JAJA SANCHEZ CALLED FOR PSYCH EVALUATION, PER MD ORDER.
--- NOTE | 2018-03-02 18:25 | NUR ---
mse completed, pt was evaluated by garrett isidro. aci given. pt ambulated w/o diff/took all belongings.
[2018-03-02 18:35] VITALS: BP 168/82
== END 2018-03-02 18:20 | disposition home or self-care (01) ==
LOC: ER 12:55
DX: F41.0 Panic disorder [episodic paroxysmal anxiety] (principal); F32.9 Major depressive disorder, single episode, unspecified; I10 Essential (primary) hypertension; E78.00 Pure hypercholesterolemia, unspecified; E11.9 Type 2 diabetes mellitus without complications; J45.909 Unspecified asthma, uncomplicated; Z86.73 Personal history of transient ischemic attack (TIA), and cerebral infarction without residual deficits; Z88.2 Allergy status to sulfonamides; Z88.8 Allergy status to other drugs, medicaments and biological substances; Z91.018 Allergy to other foods; Z79.4 Long term (current) use of insulin; Z79.2 Long term (current) use of antibiotics; Z79.899 Other long term (current) drug therapy; Z79.82 Long term (current) use of aspirin
CPT/HCPCS: 36415; 71045; 80307; 84703; 85025; 93005; A4663; G0480; G0480-TC